=== PATIENT | male | born 1950 | race Caucasian/White ===

== ENCOUNTER 2021-11-09 02:30 | Emergency (ER) | payer MEDICARE, OTHER ==
[~2021-11-09] VITALS: Ht 172.7 cm; Wt 99.8 kg
[~2021-11-09 02:30] MED LIST: AMLODIPINE; ASPI-1169 PO; HYDROCHLOROTHIAZIDE; OMEPRAZOLE; SIMVASTATIN
--- NOTE | 2021-11-09 02:51 | NUR ---
Dr. Ibrahim at bedside for MSE.
[2021-11-09] MEDS ORDERED: ONDANSETRON ODT 4 MG TAB.RAPDIS SL ONE (03:15)
[2021-11-09] MEDS ORDERED: CYCLOBENZAPRINE HCL 10 MG TABLET PO ONE (03:15)
[2021-11-09] MEDS ORDERED: HYDROCODONE/APAP 10-325 MG TABLET PO ONE (03:15)
[2021-11-09] MEDS ORDERED: ONDANSETRON ODT 4 MG TAB.RAPDIS ONE (03:19)
[2021-11-09] MEDS ORDERED: HYDROCODONE/APAP 10-325 MG TABLET ONE (03:20)
[2021-11-09] MEDS ORDERED: CYCLOBENZAPRINE HCL 10 MG TABLET ONE (03:20)
[2021-11-09] MEDS ORDERED: TERA10CA4 PO (03:22)
[2021-11-09] MEDS ORDERED: FINA5TAB11 PO (03:22)
[2021-11-09] MEDS ORDERED: OMEP40CA21 PO (03:22)
[2021-11-09] MEDS ORDERED: SIMV-46 PO (03:22)
[2021-11-09] MEDS ORDERED: IBUP-1957 PO (03:22)
[2021-11-09] MEDS ORDERED: LOSA1TAB36 PO (03:22)
[2021-11-09] MEDS ORDERED: METO-356 PO (03:22)
[2021-11-09 03:33] LABS: CREATININE 1.2 mg/dL (0.6-1.3); POTASSIUM 3.7 mmol/L (3.5-5.1)
[2021-11-09 03:37] LABS: BILIRUBIN,DIRECT 0.1 mg/dL (0.0-0.2); BILIRUBIN,TOTAL 0.6 mg/dL (0.2-1.0); TOTAL PROTEIN, SERUM 7.7 g/dL (6.4-8.2)
[2021-11-09 03:39] LABS: HEMATOCRIT 40.7 % (36.7-47.1); MEAN CORPUSCULAR HEMOGLOBIN 30.8 uug (23.8-33.4); MEAN CORPUSCULAR VOLUME 89.3 fL (73.0-96.2); PLATELET COUNT (AUTO) 164 K/uL (152-348)
[2021-11-09] MEDS ORDERED: IOHEXOL 350 100 ML INFUS..BTL ONE (04:04)
[2021-11-09] MEDS ORDERED: IV NORMAL SALINE 250 ML IV ONE (04:04)
[2021-11-09] MEDS ORDERED: SWABABLE VALVE TRANSFER SET EA MC ONE (04:04)
--- NOTE | 2021-11-09 04:09 | NUR ---
Pt out of ER for CT.
--- NOTE | 2021-11-09 04:30 | NUR ---
Pt back to ER from CT.
[2021-11-09] MEDS ORDERED: HYDR-3980 PO (04:47)
[2021-11-09] MEDS ORDERED: CYCL10TA9 PO (04:47)
[2021-11-09] MEDS ORDERED: ONDA4TAB5 PO (04:47)
--- NOTE | 2021-11-09 05:02 | NUR ---
Patient discharged to home in stable condition. Written and verbal after care instructions given. Patient verbalizes understanding of instructions. Stressed follow up or return to ER for worsening s/s. Patient out of ER with steady gait, no acute signs of distress, VSS, all belongings taken, IV site discontinued, provided with copies of CT results, instructed not to drive, to be driven home by daughter via private vehicle.
[2021-11-09 05:03] VITALS: BP 158/80
== END 2021-11-09 05:04 | disposition home or self-care (01) ==
LOC: ER 02:41
DX: M54.50 Low back pain, unspecified (principal); R91.8 Other nonspecific abnormal finding of lung field; Z87.891 Personal history of nicotine dependence; Z95.0 Presence of cardiac pacemaker; Z79.82 Long term (current) use of aspirin; Z79.899 Other long term (current) drug therapy; E03.9 Hypothyroidism, unspecified; N40.0 Benign prostatic hyperplasia without lower urinary tract symptoms; I25.2 Old myocardial infarction; E78.00 Pure hypercholesterolemia, unspecified; M25.562 Pain in left knee; R03.0 Elevated blood-pressure reading, without diagnosis of hypertension
CPT/HCPCS: 36415; 74175; 80048; 80076; 83690; 85025; 85730; 99285; Q9967; A4663; J7050; Q0162